=== PATIENT | male | born 1970 | race Two or more races ===

== ENCOUNTER 2024-09-20 17:48 | Emergency (ER) | payer OTHER ==
[~2024-09-20] VITALS: Ht 180.3 cm; Wt 104.3 kg
[~2024-09-20 17:48] MED LIST: ATIVAN1 MG; AVAPRO300 MG; FORTAMET1000 MG; GLIPIZIDE10 MG; LEVAQUIN750 MG PO; NORVASC10 MG; PAXIL CR25 MG; PROVENTIL0.5 ML/2.5 IH; PULMICORT1 MG/2 ML IH; TESSALON PERLE100 M1 PO
[2024-09-20] MEDS ORDERED: HYDRODIURIL12.5 MG PO (18:16)
[2024-09-20] MEDS ORDERED: GLYXAMBI 10 MG1 EACH PO (18:17)
[2024-09-20] MEDS ORDERED: TRAMADOL HCL 50 MG TABLET PO ONE (19:45)
[2024-09-20] MEDS ORDERED: KETO10TA2 PO (23:06)
[2024-09-20] MEDS ORDERED: NORFLEX100MG PO (23:06)
== END 2024-09-20 23:19 | disposition home or self-care (01) ==
LOC: ER 17:51
DX: S99.812A Other specified injuries of left ankle, initial encounter (principal); W19.XXXA Unspecified fall, initial encounter; Y93.89 Activity, other specified; Y92.89 Other specified places as the place of occurrence of the external cause; Y99.8 Other external cause status; I10 Essential (primary) hypertension; E11.9 Type 2 diabetes mellitus without complications; Z79.84 Long term (current) use of oral hypoglycemic drugs